=== PATIENT | male | born 1965 | race Caucasian/White ===

== ENCOUNTER → 2020-01-10 | Outpatient (CLI) | payer OTHER ==
--- NOTE | 2020-01-10 17:17 | KCIC ---
EXAM: PA, oblique and lateral views of the right hand DATE: 01/10/2020 12:00 AM INDICATION: Reason: Rt hand pain, injury to hand 2 weeks ago. / Spl. Instructions: Pain to 2nd digit. / History: COMPARISON: No Prior FINDINGS/ IMPRESSION: 1. No evidence of acute fracture or dislocation. 2. Joint spaces are preserved without significant degenerative/proliferative change. 3. Mild soft tissue swelling about the index finger. No definite retained radiopaque foreign body. Electronically signed by: Baron Hernández MD (01/10/2020 5:14 PM) [id number]
== END ==
LOC: KCIC 15:41
PROVIDERS: ATTEND Physician Assistant Medical
DX: M25.441 Effusion, right hand (principal)
CPT/HCPCS: 73130